=== PATIENT | male | born 1980 | race Caucasian/White ===

== ENCOUNTER 2019-10-17 13:23 | Emergency (ER) | payer SELFPAY ==
[2019-10-17 13:57] LABS: Absolute Lymphocytes (CBC) 2.5 K/uL (0.7-4.9); Basophils % 0.7 % (0-1.3); Hematocrit 45.9 % (39.6-49.0); Lymphocytes % 27.5 % (15.3-44.8); MPV 8.5 fL (7.6-11.3); RBC Red Blood Cell Count 4.38 M/uL (4.33-5.43)
[2019-10-17 14:02] LABS: Protime INR 0.91
--- NOTE | 2019-10-17 14:12 | RAD REPORT ---
EXAM DESCRIPTION: Danial Single View10/17/2019 1:55 pm CLINICAL HISTORY: Chest pain COMPARISON: none FINDINGS: The lungs appear clear of acute infiltrate. The heart is normal size IMPRESSION: No acute abnormalities displayed
[2019-10-17 14:17] LABS: ALT/SGPT 75 U/L (12-78); AST/SGOT 163 U/L (15-37); Albumin 3.7 g/dL (3.4-5.0); Alkaline Phosphatase 133 U/L (45-117); BUN Blood Urea Nitrogen 5 mg/dL (7-18); Bicarbonate 31 mmol/L (21-32); Bilirubin Direct 0.2 mg/dL (0-0.2); Bilirubin Total 0.7 mg/dL (0.2-1.0); Glucose Level 65 mg/dL (74-106); Magnesium 1.9 mg/dL (1.8-2.4); NT PRO-BNP 11 pg/mL (<125); Potassium 3.8 mmol/L (3.5-5.1); Protein, Total 6.8 g/dL (6.4-8.2); Sodium Level 138 mmol/L (136-145); Troponin (Emerg Dept Use Only) < 0.02 ng/mL (0.0-0.045)
[2019-10-17] MEDS ORDERED: KETOROLAC 30 MG/ML INJ ONE (15:07)
--- NOTE | 2019-10-17 15:19 | EKG ---
Test Date: 2019-10-17 Test Time: 13:43:27 [place] Floors Installer: AUSTYN MEASUREMENT RESULTS: Intervals: Rate: 89 MN: 160 QRSD: 88 QT: 370 QTc: 450 Wylie: P: 47 MN: 160 QRS: 62 T: 46 INTERPRETIVE STATEMENTS: Normal sinus rhythm Normal ECG No previous ECG available for comparison Electronically Signed On 10-17-19 15:17:53 MANUAL TRAINING TEACHER by Carlos Mcnally
--- NOTE | 2019-10-17 17:14 | EDPHYS ---
Physician Documentation [facility] Name: Raleigh Viera Age: 39 yrs Sex: Male : 1980 Arrival Date: 10/17/2019 Time: 13:26 Bed 16 Private MD: None, None ED Physician Gomez Pappas HPI: 10/17 14:37 This 39 yrs old Male presents to ER via Wheelchair with complaints of Chest [facility] Pain. 14:37 The patient or guardian reports chest pain that is located primarily in the anterior [facility] chest wall, left. The pain does not radiate. Associated signs and symptoms: Pertinent positives: cough, Pertinent negatives: shortness of breath. The chest pain is described as sharp. This is a 39 year old male with no chronic medical conditions that presents to the ED with complaints of left sided chest pain he describes as sharp. The pain does not radiate. Worsened with deep breath. . Historical: - Allergies: 13:32 PENICILLINS; tw2 - Home Meds: 13:32 None [Active]; tw2 - PMHx: 13:32 None; tw2 - PSHx: 13:32 left ankle; tw2 - Immunization history:: Adult Immunizations. - Coronavirus screen:: The patient has NOT traveled to [place], [place], or [place] in the past 14 days. - Social history:: Smoking status: Patient reports the use of cigarette tobacco products, smokes one pack cigarettes per day. - Ebola Screening: : Patient denies travel to an Ebola-affected area in the 21 days before illness onset. ROS: 14:37 Constitutional: Negative for fever, chills, and weight loss. jmm 14:37 Respiratory: Negative for shortness of breath, cough, wheezing, and pleuritic chest pain. 14:37 Cardiovascular: Positive for chest pain. 14:37 All other systems are negative. Exam: 14:37 Constitutional: This is a well developed, well nourished patient who is awake, alert, jmm and in no acute distress. Head/Face: atraumatic. Eyes: EOMI, no conjunctival erythema appreciated ENT: Moist Mucus Membranes Neck: Trachea midline, Supple 14:37 Respiratory: Normal respirations, no respiratory distress appreciated Abdomen/GI: Non distended, soft Back: Normal ROM Skin: General appearance color normal MS/ Extremity: Moves all extremities, no obvious deformities appreciated, no edema noted to the lower extremities Neuro: Awake and alert, normal gait Psych: Behavior is normal, Mood is normal, Patient is cooperative and pleasant 14:37 Chest/axilla: Inspection: normal, Palpation: tenderness, that is moderate, of the left breast. Vital Signs: 13:33 Pulse 55; Resp 17; Temp 97.8(TE); Pulse Ox 98% on R/A; Weight 72.57 kg (R); Height 6 tw2 ft. 1 in. (185.42 cm); Pain 9/10; 13:35 BP 147 / 103; tw2 14:45 BP 137 / 100; Pulse 86; Resp 17 S; Pulse Ox 95% on R/A; ca1 15:48 BP 137 / 104; Pulse 81; Resp 20; Pulse Ox 96% on R/A; ca1 16:54 BP 132 / 99; Pulse 73; Resp 17 S; Pulse Ox 96% on R/A; ca1 13:33 Body Mass Index 21.11 (72.57 kg, 185.42 cm) tw2 MDM: 13:41 Patient medically screened. coni 17:10 Data reviewed: vital signs, nurses notes, lab test result(s), EKG, radiologic studies, jmm plain films. ED course: Repeat troponin negative. PERC negative. Patient is advised to follow up with pcp or otherwise given strict return precautions. patient understood and agrees with the plan of care. . 10/17 13:35 Order name: Basic Metabolic Panel; Complete Time: 14:20 10/17 13:35 Order name: CBC with Diff; Complete Time: 14:20 10/17 13:35 Order name: LFT's; Complete Time: 14:20 10/17 13:35 Order name: Magnesium; Complete Time: 14:20 10/17 13:35 Order name: NT PRO-BNP; Complete Time: 14:20 10/17 13:35 Order name: PT-INR; Complete Time: 14:20 10/17 13:35 Order name: Troponin (emerg Dept Use Only); Complete Time: 14:20 10/17 13:35 Order name: XRAY Chest (1 view); Complete Time: 14:20 10/17 13:35 Order name: EKG; Complete Time: 13:36 10/17 13:35 Order name: Cardiac monitoring; Complete Time: 13:58 ca1 10/17 13:35 Order name: EKG - Nurse/Tech; Complete Time: 13:58 ca1 10/17 13:35 Order name: IV Saline Lock; Complete Time: 13:58 ca1 10/17 14:41 Order name: Troponin (emerg Dept Use Only): draw at 1535; Complete Time: 16:30 [facility] 10/17 13:35 Order name: Labs collected and sent; Complete Time: 13:58 ca1 10/17 13:35 Order name: O2 Per Protocol; Complete Time: 13:58 ca1 10/17 13:35 Order name: O2 Sat Monitoring; Complete Time: :58 ca1 Administered Medications: 15:04 Drug: Ketorolac 30 mg Route: IVP; Site: left antecubital; ca1 16:00 Follow up: Response: No adverse reaction; Pain is decreased ca1 Disposition: 10/18 08:58 Co-signature as Attending Physician, Gomez Pappas MD I agree with the assessment and coni plan of care. Disposition: 10/17/19 17:13 Discharged to Home. Impression: Chest pain, unspecified. - Condition is Stable. - Discharge Instructions: Nonspecific Chest Pain. - Prescriptions for Ibuprofen 800 mg Oral Tablet - take 1 tablet by ORAL route every 8 hours As needed take with food; 30 tablet. - Medication Reconciliation Form, Thank You Letter, Antibiotic Education, Prescription Opioid Use, Work release form form. - Follow up: Private Physician; When: 2 - 3 days; Reason: Recheck today's complaints, Continuance of care, Re-evaluation by your physician. Signatures: Dispatcher [employer] Gomez Atkins MD MD cha Mickail, Joel, PA PA Carmen Stephens, RN RN tw2 Bety Kearney RN RN ca1 Corrections: (The following items were deleted from the chart) 10/17 17:36 17:13 10/17/2019 17:13 Discharged to Home. Impression: Chest pain, unspecified. ca1 Condition is Stable. Forms are Medication Reconciliation Form, Thank You Letter, Antibiotic Education, Prescription Opioid Use. Follow up: Private Physician; When: 2 - 3 days; Reason: Recheck today's complaints, Continuance of care, Re-evaluation by your physician. calvin
--- NOTE | 2019-10-17 17:14 | ER ---
Nurse's Notes [facility] Name: Raleigh Viera Age: 39 yrs Sex: Male : 1980 Arrival Date: 10/17/2019 Time: 13:26 Bed 16 Private MD: None, None Diagnosis: Chest pain, unspecified Presentation: 10/17 13:31 Presenting complaint: Patient states: started having chest pain about a week ago, it is tw2 just not getting better. Transition of care: patient was not received from another setting of care. Onset of symptoms was October 17, 2019. Risk Assessment: Do you want to hurt yourself or someone else? Patient reports no desire to harm self or others. Initial Sepsis Screen: Does the patient meet any 2 criteria? No. Patient's initial sepsis screen is negative. Does the patient have a suspected source of infection? No. Patient's initial sepsis screen is negative. Care prior to arrival: None. 13:31 Method Of Arrival: Wheelchair tw2 13:31 Acuity: MANDO 3 tw2 Triage Assessment: 13:32 General: Appears in no apparent distress. Behavior is calm, cooperative, appropriate tw2 for age. Pain: Complains of pain in chest. Cardiovascular: Reports chest pain. Historical: - Allergies: 13:32 PENICILLINS; tw2 - Home Meds: 13:32 None [Active]; tw2 - PMHx: 13:32 None; tw2 - PSHx: 13:32 left ankle; tw2 - Immunization history:: Adult Immunizations. - Coronavirus screen:: The patient has NOT traveled to [place], [place], or [place] in the past 14 days. - Social history:: Smoking status: Patient reports the use of cigarette tobacco products, smokes one pack cigarettes per day. - Ebola Screening: : Patient denies travel to an Ebola-affected area in the 21 days before illness onset. Screenin:45 Abuse screen: Denies threats or abuse. Denies injuries from another. Nutritional ca1 screening: No deficits noted. Tuberculosis screening: No symptoms or risk factors identified. Fall Risk IV access (20 points). Assessment: 13:45 General: Appears in no apparent distress. comfortable, Behavior is calm, cooperative, ca1 appropriate for age. Pain: Complains of pain in left breast Pain does not radiate. Pain currently is 7 out of 10 on a pain scale. Quality of pain is described as sharp, Pain began a week ago Is intermittent. Neuro: Level of Consciousness is awake, alert, obeys commands, Oriented to person, place, time, situation, Appropriate for age. Cardiovascular: Heart tones S1 S2 present Capillary refill < 3 seconds Patient's skin is warm and dry. Pulses are all present. Rhythm is sinus rhythm. Respiratory: Airway is patent Respiratory effort is even, unlabored, Respiratory pattern is regular, symmetrical, Breath sounds are clear bilaterally. GI: Abdomen is flat, non-distended, Bowel sounds present X 4 quads. Abd is soft and non tender X 4 quads. GI: Reports nausea. : No deficits noted. No signs and/or symptoms were reported regarding the genitourinary system. EENT: No deficits noted. No signs and/or symptoms were reported regarding the EENT system. Derm: Skin is intact, is healthy with good turgor, Skin is pink, warm \T\ dry. Musculoskeletal: Circulation, motion, and sensation intact. Capillary refill < 3 seconds, Range of motion: intact in all extremities. 14:45 Reassessment: Patient appears in no apparent distress at this time. No changes from ca1 previously documented assessment. Patient and/or family updated on plan of care and expected duration. Pain level reassessed. Patient is alert, oriented x 3, equal unlabored respirations, skin warm/dry/pink. 15:47 Reassessment: Patient appears in no apparent distress at this time. No changes from ca1 previously documented assessment. Patient and/or family updated on plan of care and expected duration. Pain level reassessed. Patient is alert, oriented x 3, equal unlabored respirations, skin warm/dry/pink. 16:54 Reassessment: Patient appears in no apparent distress at this time. Patient and/or ca1 family updated on plan of care and expected duration. Pain level reassessed. Patient is alert, oriented x 3, equal unlabored respirations, skin warm/dry/pink. Vital Signs: 13:33 Pulse 55; Resp 17; Temp 97.8(TE); Pulse Ox 98% on R/A; Weight 72.57 kg (R); Height 6 tw2 ft. 1 in. (185.42 cm); Pain 9/10; 13:35 BP 147 / 103; tw2 14:45 BP 137 / 100; Pulse 86; Resp 17 S; Pulse Ox 95% on R/A; ca1 15:48 BP 137 / 104; Pulse 81; Resp 20; Pulse Ox 96% on R/A; ca1 16:54 BP 132 / 99; Pulse 73; Resp 17 S; Pulse Ox 96% on R/A; ca1 13:33 Body Mass Index 21.11 (72.57 kg, 185.42 cm) tw2 ED Course: 13:26 Patient arrived in ED. mr 13:26 None, None is Private Physician. mr 13:30 Bety Kearney, RN is Primary Nurse. ca1 13:32 Triage completed. tw2 13:33 Arm band placed on EKG paged to room 16 at this time. tw2 13:40 Kavon Rizzo PA is PHCP. [facility] 13:40 Gomez Pappas MD is Attending Physician. jmm 13:45 Patient has correct armband on for positive identification. Placed in gown. Bed in low ca1 position. Call light in reach. Side rails up X2. radiation monitor on. Pulse ox on. NIBP on. Warm blanket given. 13:55 X-ray completed. Portable x-ray completed in exam room. Patient tolerated procedure jb2 well. 13:55 No provider procedures requiring assistance completed. Initial lab(s) drawn, by vt, ca1 sent to lab. Inserted saline lock: 20 gauge in left antecubital area, using aseptic technique. Blood collected. Patient maintains SpO2 saturation greater than 95% on room air. 13:56 XRAY Chest (1 view) In Process Unspecified. EDMS 14:03 EKG done, by cable television technician. reviewed by Kavon LEAVITT. at1 17:35 IV discontinued, intact, bleeding controlled, No redness/swelling at site. Pressure ca1 dressing applied. Administered Medications: 15:04 Drug: Ketorolac 30 mg Route: IVP; Site: left antecubital; ca1 16:00 Follow up: Response: No adverse reaction; Pain is decreased ca1 Outcome: 17:13 Discharge ordered by . jmm 17:35 Discharged to home ambulatory. ca1 17:35 Condition: stable 17:35 Discharge instructions given to patient, Instructed on discharge instructions, follow up and referral plans. medication usage, Demonstrated understanding of instructions, follow-up care, medications, Prescriptions given X 1. 17:36 Patient left the ED. ca1 Signatures: Dispatcher [employer] EDMS Kavon Rizzo PA PA jmm RiveraYessi mr Sahil, Tunde jb2 Glenny Ding, blending operator EKG Tat1 Carmen Bernardo, RN RN tw2 Bety Kearney RN RN ca1
[2019-10-17 17:43] VITALS: TEMP 97.8
[2019-10-17 17:46] VITALS: O2SAT 96
[2019-10-17 17:47] VITALS: BP 132/99
== END 2019-10-17 17:36 | disposition home or self-care (01) ==
LOC: EDBD 13:23 → ER 13:23
DX: R07.9 Chest pain, unspecified (principal); Z88.0 Allergy status to penicillin
CPT/HCPCS: 36415; 71045; 80048; 80076; 83735; 83880; 84484; 85025; 85610; 93005; 96374; 99285

== ENCOUNTER 2021-04-16 08:15 | Emergency (ER) | payer SELFPAY ==
--- OUTSIDE RECORDS SUMMARY | 2021-04-16 08:19 | XMS REPORT | Continuity of Care Document ---
:1980 Author Organization [facility] t Address [address] [place] [address] Care Team Providers Name Role Phone Moses Hunter MD Attending Clinician Rosa Romano Attending Clinician Austin Attending Clinician Billy Kraft Attending Clinician [phone] Julio Colunga Attending Clinician Rosa Romano Admitting Clinician Problems Condition Condition Condition Status Onset Resolution Last Treating Co mments Source Name Details Category Date Date Treatment Clinician Date THROAT Diagnosis Active 2018-12-18 Mem oria PAIN 9-13 16:08:00 l THROAT 00:00: Stanley PAIN 00 Active 06/03/2018 [facility] [place] CHEST PAIN Diagnosis Active 2017-12-24 Memoria - 16:30:00 l CHEST 00:00: Michael PAIN 00 Active 12/24/2017 [facility] MOUTH PAIN Diagnosis Active 2014-092015-09-20 Memoria 17:37:00 l MOUTH 00:00: Stanley PAIN 00 Active 09/20/2015 [facility] Other Problem 2018-12-21 Memor ia specified 14:56:46 l bacterial Other Joey n agents as specified the cause bacterial of agents as diseases the cause classified of elsewhere diseases classified elsewhere 12/21/2018 [place] Supraglott Problem 2018-12-21 M ludmila goddard, 14:56:46 l unspecifie Joey n d, without Supraglott obstructio itis, n unspecifie d, without obstructio n 12/21/2018 [facility] Alcohol Problem 2018-12-23 Chris bennett abuse, 11:44:27 l uncomplica Alcohol Her ashton kim abuse, uncomplica kim 12/23/2018 [facility] Nicotine Problem 2018-12-23 Mem oria dependence 11:44:27 l , Nicotine Joey n cigarettes dependence , , uncomplica cigarettes kim , uncomplica kim 12/23/2018 [facility] ACUTE Diagnosis Active 2018-12-18 Mem oria PHARYNGITI 16:08:00 l S, ACUTE Stanley UNSPECIFIE PHARYNGITI D S, UNSPECIFIE D Active [facility] History of Past Illness Condition Condition Condition Status Onset Resolution Last Treating Co mments Source Name Details Category Date Date Treatment Clinician Date Acute Problem 2017-092018-12-23 2018-12-23 M emoria epiglottit -30 11:44:27 11:44:27 l is without Acute 06:32: Page nn obstructio epiglottit 21 n is without obstructio n 08/20/2018 12/23/2018 [facility] Upper Problem 2018-04-01 2018-04-01 M emoria abdominal 12 16:19:17 16:19:17 l pain, Upper 03:49: Stanley unspecifie abdominal 52 d pain, unspecifie d 12/31/2017 04/01/2018 [facility] Unspecifie Problem 2018-04-01 2018-04-01 Memoria d 4-05 16:19:17 16:19:17 l abdominal 05:00: Stanley pain Unspecifie 00 d abdominal pain 12/24/2017 04/01/2018 [facility] Discharge Problem 2014-092015-09-23 2015-09-23 Memoria Diagnosis: 2- 06:18:08 06:18:08 l Dental 06:00: Stanley infection Discharge 00 Diagnosis: Dental infection 09/20/2015 09/23/2015 [facility] Allergies, Adverse Reactions, Alerts Allergy Allergy Status Severity Reaction(s) Onset Inactive Treating Comm ents Source Name Type Date Date Clinician penicill penicill Active Memori a ins ins l Michael Social History Social Habit Start Date Stop Date Quantity Comments Source Social History 2018-06-03 2018-06-03 [facility] 12:47:03 12:47:03 Medications Ordered Filled Start Stop Current Ordering Indication Dosage Frequency Signature Comments Components Source Medication Medication Date Date Medication? Clinician (SIG) Name Name clindamycin 2017- No 300 mg = 1 Memoria 300 mg oral 9-15 cap, PO, l capsule 16:32: Q6H, X 10 Page nn 00 day, # 40 cap, 0 Refill(s), Pharmacy: [place] [id number] Clindamycin 2017-0 No 300 mg, 50 Memoria 9-15 mL, Route: l 14:00: IVPB, Drug Michael 00 form: INJ, ABXQ8H, Dosing Weight 79.9, kg, Start date: 06/05/18 9:00:00 CDT, Duration: 10 day, Stop date: 06/15/18 1:00:00 CDT, ABX Indication : Skin/Soft Tissue Infection Lorazepam No Notes: Memori a 14 (Same as: l 14:17: Ativan) Michael 00 Saline 0 No Notes: Memoria Flush 0.9% 06-04 (Same as: l 02:00: BD Stanley Posiflush) Mupirocin 2017-0 No 1 appl, Memor ia 06-04 Route: l 02:00: NASAL, Stanley 00 Q12H, Drug form: OINT, Start date: 06/03/18 21:00:00 CDT, Duration: 5 day, Stop date: 06/08/18 9:00:00 CDT, MRSA Decoloniza tion Dexamethaso 2017-0 No 4 mg, Memor ia ne 06-03 Route: l 23:00: IVP, Q6H, Michael Dosing Weight 75, kg, Start date: 06/03/18 18:00:00 CDT, Duration: 30 day, Stop date: 07/03/18 12:00:00 CDT Clindamycin 2017-0 No 900 mg, Mem oria 06-03 Route: l 22:00: IVPB, Stanley ABXQ8H, Dosing Weight 75, kg, Start date: 06/03/18 17:00:00 CDT, Duration: 7 day, Stop date: 06/10/18 9:00:00 CDT, ABX Indication : Other (specify in Comments) remove No Notes: Memoria patch 06-03 Remove old l 22:00: patch Stanley 00 before applicatio n of new patch. WASTE: F/P - P Waste Black; E - P Waste Black Racepinephr No Notes: Chris bennett ine 22.5 06-03 (racepinep l MG/ML 21:15: hrine Michael Inhalant 00 *2.25% inh Solution 0.5ml SOLN) (Same as:S2) Sodium No 1,000 mL, Memori a Chloride 06-03 Rate: 100 l 0.9% IV 21:13: ml/hr, Michael 1,000 mL + 00 Infuse M.V.I.-12 over: 10.1 10 mL Daily hr, Route: + folic IV, Dosing acid IV 1 Weight 75 mg Daily + kg, Total thiamine IV Volume: 1 1,011.2, Start date: 06/03/18 16:13:00 CDT, Duration: 3 day, Stop date: 06/06/18 16:12:00 CDT, 1.96, m2 Lorazepam No Notes: Memori a 06-03 (Same as: l 21:13: Ativan) Michael 00 Nicotine No Notes: Memoria 06-03 (Same as: l 21:12: Habitrol) Stanley "Remove old patch before applicatio n of new patch" WASTE: F/P - P Waste Black; E - P Waste Black Calcium No Notes: Memoria Carbonate 06-03 (Same As: l 500 MG 21:11: Tums) Stanley Chewable 00 Calcium Tablet Carbonate 500 mg = 200 mg elemental calcium Dose = mg calcium carbonate ( mg elemental calcium) potassium No Notes: Memori a phosphate-s 06-03 (Same as: l odium 21:11: Phos-NaK) Michael phosphate 00 Each 1.5 250 mg-280 gm pkt has mg-160 mg 250mg oral powder phosphorou for s. Mix reconstitut w/2.5oz ion water and stir. Magnesium No Notes: Memori a Sulfate 06-03 WASTE: F/P l 21:11: - Sink; E Stanley - Municipal Trash Bin sodium No Notes: Memoria phosphate 9-13 Infuse l 21:11: over 4 Stanley 00 hour. Do not infuse phosphorou s concurrent ly in the same line as TPN or IVF that contains calcium. For double lumen central lines, phosphorou s may be infused in a separate lumen from TPN. Potassium No Notes: Memori a Chloride 9-13 (Same as: l 21:11: Potassium Michael Chloride) potassium No Notes: Memori a phosphate 9-13 (Same as: l 21:11: K Stanley Phosphate. ) Do not infuse phosphorou s concurrent ly in the same line as TPN or IVF that contains calcium. For double lumen central lines, phosphorou s may be infused in a separate lumen from TPN. 1 mMol phoshate has 1.47 mEq potassium Infuse over 4 hours Calcium No Notes: Memoria Gluconate 06-03 WASTE: F/P l 21:11: - Sink; E Stanley - Municipal Trash Bin Magnesium No Notes: Memori a Oxide 06-03 (Same as: l 21:11: Mag-Ox Michael 00 400) Magnesium oxide 714by=730h g elemental magnesium Dose=____m g magnesium oxide (___mg elemental magnesium) Saline No Notes: Memoria Flush 0.9% 06-03 (Same as: l 21:11: BD Michael Posiflush) Albuterol No Notes: Memori a 0.833 MG/ML 06-03 (Same as: l / 21:11: Duoneb) Stanley Ipratropium 00 Ebro 0.167 MG/ML Inhalant Solution Acetaminoph No Notes: Do M emoria en 06-03 not exceed l 21:11: 4 gm/day. Stanley 00 (Same as: Tylenol) Nystatin No Notes: Memoria 100 UNT/MG 06-03 (Same l Topical 21:11: as:Mycosta Herm rashaad Powder 00 tin, Nilstat) For external use only. Clindamycin No Notes: Chris bennett 06-03 (clindamyc l 17:51: in 150 Stanley 00 mg/1 ml (600 mg/4 ml VL) INJ) (Same As: Cleocin) Dexamethaso 2017-0 No Notes: Memoria ne - MEDICATION l 17:51: WASTE Stanley 00 Product Size: 10 mg Product Wasted: ___ mg Clindamycin [id number] No 900 mg, 50 Memoria 9-13 mL, Route: l 17:42: IVPB, Drug Michael 00 form: INJ, ONCE, Dosing Weight 75, kg, Priority: STAT, Start date: 06/03/18 12:42:00 CDT, Stop date: 06/03/18 12:42:00 CDT, ABX Indication : Non-PNA Respirator y Tract Infection Ceftriaxone 0 No 1 gm, Memor ia 06-03 Route: l 16:13: IVPB, Stanley 00 ONCE, Dosing Weight 75, kg, Priority: STAT, Start date: 06/03/18 11:13:00 CDT, Stop date: 06/03/18 11:13:00 CDT, ABX Indication : Non-PNA Respirator y Tract Infection Ketorolac 0 No 4 days Memor ia -13 l 13:11: MEDICATION Stanley 00 WASTE Product Size: 30 mg Product Wasted: ___ mg methylPREDN No Notes: Chris bennett ISolone 06-03 (Same l SODium 13:11: as:Solu-ME Page nn SUCCinate 00 DROL, A-Methapre d) Sodium No 1,000 mL, Memori a Chloride 06-03 1000 l 0.9% 13:11: ml/hr, Stanley (Bolus) IV 00 Infuse Over: 1 hr, Route: IV, 1,000, Drug form: INJ, ONCE, Priority: STAT, Dosing Weight 75 kg, Start date: 06/03/18 8:11:00 CDT, Stop date: 06/03/18 8:11:00 CDT Sucralfate 2017-0 Yes 1 gm = 10 Me moria 100 MG/ML 4-05 ml, PO, l Oral 22:53: QID-Before Stanley Suspension 00 Meals, # [Carafate] 400 ml, 0 Refill(s) GI cocktail 2018-0 No Notes: Chris bennett 4-05 G.I. l 22:52: Cocktail = Stanley 00 antacid with simethicon e 22.5 mL - lidocaine viscous 7.5 mL Bentyl No Notes: Memoria 4-05 (Same as: l 22:51: Bentyl) Stanley 00 Dicyclomine Yes 10 mg = 1 M emoria Hydrochlori 4-05 cap, PO, l de 10 MG 22:49: QID-Before Her ashton Oral 00 Meals, # Capsule 12 cap, 0 [Bentyl] Refill(s) Acetaminoph No 1 tab, PO, Memoria en 300 MG / 4-05 TID, PRN l Codeine 22:48: Pain, X 4 Page nn Phosphate 00 day, # 12 30 MG Oral tab, 0 Tablet Refill(s) [Tylenol with Codeine #3] Naproxen 2014-09 Yes 500 mg = 1 Mem oria 500 MG Oral 2-31 tab, PO, l Tablet 23:20: BID, # 14 Joey n [Naprosyn] 00 tab, 0 Refill(s) lidocaine 2014-09 Yes Notes: Memori a 1% 2-31 (Same as: l injectable 23:06: Xylocaine) H ermann solution 00 Vital Signs Vital Name Observation Time Observation Value Comments Source Systolic (mm Hg) 2018-06-05 16:22:00 Chris rial Michael Diastolic (mm Hg) 2018-06-05 16:22:00 Mem orial Michael Respitory Rate 2018-06-05 16:22:00 Memori al Michael Heart Rate 2018-06-05 16:22:00 [facility] Michael Temperature Oral (F) 2018-06-05 16:22:00 99.2 F [facility] Michael Systolic (mm Hg) 2018-06-05 13:02:00 Hcris rial Michael Diastolic (mm Hg) 2018-06-05 13:02:00 Mem orial Michael Temperature Oral (F) 2018-06-05 13:02:00 98.0 F [facility] Michael Respitory Rate 2018-06-05 13:02:00 Memori al Michael Heart Rate 2018-06-05 13:02:00 [facility] Michael Temperature Oral (F) 2018-06-05 09:33:00 98.3 F [facility] Stanley Heart Rate 2018-06-05 09:33:00 [facility] [place] Respitory Rate 2018-06-05 09:33:00 Memori al Stanley Systolic (mm Hg) 2018-06-05 09:33:00 Chris rial Stanley Diastolic (mm Hg) 2018-06-05 09:33:00 Mem orial Stanley Weight 2018-06-04 00:27:00 [facility] Michael Weight 2018-06-03 21:12:00 [facility] Stanley BMI Calculated 2018-06-03 21:12:00 Memori al Stanley Height 2018-06-03 21:12:00 182.88 cm [facility] Michael Heart Rate 2018-06-03 19:41:00 [facility] Michael Temperature Oral (F) 2018-06-03 19:41:00 99.3 F [facility] Stanley Systolic (mm Hg) 2018-06-03 19:41:00 Chris rial Michael Diastolic (mm Hg) 2018-06-03 19:41:00 Mem orial Michael Respitory Rate 2018-06-03 19:41:00 Memori al Michael Respitory Rate 2018-06-03 18:14:00 Memori al Stanley Respitory Rate 2018-06-03 18:05:00 Memori al Michael Systolic (mm Hg) 2018-06-03 18:05:00 Chris rial Michael Diastolic (mm Hg) 2018-06-03 18:05:00 Mem orial Michael Temperature Oral (F) 2018-06-03 17:01:00 99.1 F [facility] [place] Systolic (mm Hg) 2018-06-03 17:01:00 Chris rial Michael Diastolic (mm Hg) 2018-06-03 17:01:00 Mem orial Michael BMI Calculated 2018-06-03 12:29:00 Memori al Stanley Weight 2018-06-03 12:29:00 [facility] Michael Temperature Oral (F) 2018-06-03 12:29:00 98.2 F [facility] Stanley Height 2018-06-03 12:29:00 182.88 cm [facility] Stanley Heart Rate 2018-06-03 12:29:00 [facility] Michael Systolic (mm Hg) 2017-12-24 23:12:00 Chris rial Stanley Diastolic (mm Hg) 2017-12-24 23:12:00 Mem orial Michael Respitory Rate 2017-12-24 23:12:00 Memori al Michael Temperature Oral (F) 2017-12-24 23:12:00 98.1 F [facility] Michael Heart Rate 2017-12-24 23:12:00 [facility] Stanley Weight 2017-12-24 20:03:00 [facility] Stanley Respitory Rate 2017-12-24 20:03:00 Memori al Michael Heart Rate 2017-12-24 20:03:00 [facility] Stanley Height 2017-12-24 20:03:00 187.96 cm [facility] Stanley BMI Calculated 2017-12-24 20:03:00 Memori al Micahel Temperature Oral (F) 2017-12-24 20:03:00 98.5 F [facility] Michael Systolic (mm Hg) 2017-12-24 20:03:00 Chris rial Michael Diastolic (mm Hg) 2017-12-24 20:03:00 Mem orial Stanley Weight 2015-09-20 23:00:00 [facility] Stanley Respitory Rate 2015-09-20 23:00:00 Memori al Stanley Temperature Oral (F) 2015-09-20 23:00:00 98 F [facility] Stanley Systolic (mm Hg) 2015-09-20 23:00:00 Chris rial Michael Diastolic (mm Hg) 2015-09-20 23:00:00 Mem orial Stanley Heart Rate 2015-09-20 23:00:00 [facility] Michael Procedures Procedure Date / Time Performed Performing Clinician Sourc e Ankle joint [facility] Michael operations<sup>1</sup> Encounters Start End Encounter Admission Attending Care Care Encounter Source Date/Time Date/Time Type Type Clinicians Facility Department ID 2020-04-02 2020-04-02 [place] [id number] 00:00:00 00:00:00 [facility] [id number] Moses Castro [id number] Professio [phone] nal [address] 2020-03-30 2020-03-30 Telephone [facility] [id number] 00:00:00 00:00:00 Gigi [place] [id number] Moses Snell [id number] Professio [phone] nal [facility] 2020-03-28 2020-03-28 [facility] [id number] 13:33:02 13:48:02 Visit Gigi Castro [id number] Moses Snell [id number] Professio [id number] nal 044 [facility] 2020-03-28 2020-03-28 Letter [facility] [id number] 00:00:00 00:00:00 (Out) Gigi Castro [id number] jolly Azevedobury [id number] Professio [phone] nal [address] [place] [address] 2018-06-03 2018-06-05 Outpatient Rosalina SE SE [id number] 15:58:00 14:00:00 Aimeedylon Lee 2018-06-03 2018-06-[address] [id number] 07:25:00 15:17:00 Wilner 02 2017-12-24 2017-12-[address]va-Dayan [address] [facility] [id number] 14:59:00 18:35:00 aimee, Juan Cervantes 2015-09-20 2015-09-20 Outpatient Bobby Colunga SE SE [id number] 16:57:00 17:34:00 Julio 00 Results Test Description Test Time Test Comments Results Result Comments Source CHEM PANEL 2018-06-04 2.1 Memorial 10:59:00 Stanley CHEM PANEL 2018-06-04 118 Memorial 10:59:00 Stanley CHEM PANEL 2018-06-04 143 Memorial 10:59:00 Stanley CHEM PANEL 2018-06-04 4.2 Memorial 10:59:00 Stanley CHEM PANEL 2018-06-04 109 Memorial 10:59:00 Stanley CHEM PANEL 2018-06-04 30 Memorial 10:59:00 Stanley CHEM PANEL 2018-06-04 8.8 Memorial 10:59:00 Michael CHEM PANEL 2018-06-04 0.74 Memorial 10:59:00 Stanley CHEM PANEL 2018-06-04 130 Memorial 10:59:00 Michael CHEM PANEL 2018-06-04 6 Memorial 10:59:00 Stanley CHEM PANEL 2018-06-04 8.2 Memorial 10:59:00 Michael CHEM PANEL 2018-06-04 2.0 Memorial 10:59:00 Stanley HEMATOLOGY 2018-06-04 0.8 Memorial 10:59:00 Michael HEMATOLOGY 2018-06-04 12.7 Memorial 10:59:00 Stanley HEMATOLOGY 2018-06-04 2+ Memorial 10:59:00 *ABN*(06/04/18 Stanley 5:59 AM) HEMATOLOGY 2018-06-04 0.9 Memorial 10:59:00 Stanley HEMATOLOGY 2018-06-04 88.5 Memorial 10:59:00 Stanley HEMATOLOGY 2018-06-04 5.3 Memorial 10:59:00 Stanley HEMATOLOGY 2018-06-04 6.0 Memorial 10:59:00 Michael HEMATOLOGY 2018-06-04 0.2 Memorial 10:59:00 Michael HEMATOLOGY 2018-06-04 13.3 Memorial 10:59:00 Michael HEMATOLOGY 2018-06-04 14.3 Memorial 10:59:00 Michael HEMATOLOGY 2018-06-04 4.03 Memorial 10:59:00 Michael HEMATOLOGY 2018-06-04 104.5 Memorial 10:59:00 Michael HEMATOLOGY 2018-06-04 42.1 Memorial 10:59:00 Stanley HEMATOLOGY 2018-06-04 35.0 Memorial 10:59:00 Michael HEMATOLOGY 2018-06-04 10:59:00 Test Item Value Reference Range Interpretation Comme nts MCH (test code = MCH) 36.6 pg 27.0-31.0 [facility] NlhggmsTHYCZLESHB7171-26-49 10:59:008.8[facility]ann[facility]MATOLOGY 2018-06-04 10:59:94788Tymskgjr JygdhcqPNLFZXYVTH5882-37-12 10:59:0014.8[facility] HermannSPECIAL UURFJFCAY4330-93-29 10:59:004.5[facility] PrxjjbmWWBQZ3757-20-99 14:00:00Negative (06/03/18 9:00 AM)[facility] HermannVIRAL - [id number] 14:00:00Negative (06/03/18 9:00 AM)[facility] HermannVIRAL - EYPPIWNM1846-85-48 14:00:00Negative (06/03/18 9:00 AM)[facility]ann[facility]M LYZHV6897-70-35 13:44:00 144[facility] HermannCHEM KGHWE6951-81-43 13:44:003.6[facility] HermannCHEM PANEL 2018-06-03 13:44:74640Dzykvffl HermannCHEM CEBRS7551-81-50 13:44:004[facility] HermannCHEM VLUMZ4859-40-19 13:44:00 Test Item Value Reference Range Interpretation Comments B/C Ratio (test code = B/C Ratio) 5 1 6-25 [facility]annCHEM [id number] 13:44:003.7[facility] HermannCHEM PANEL 2018-06-03 13:44:00 Test Item Value Reference Range Interpretation Comments A/G Ratio (test code = A/G Ratio) 1.1 1 0.7-1.6 [facility]annCHEM [id number] 13:44:0012.6[facility] HermannHEMATOLOGY 2018-06-03 13:44:000.8[facility] HgvxptoHLNYLAHJPQ7214-32-34 13:44:000.4[facility] WrpnmwrTNKCNUTNBV9425-42-32 13:44:000.2[facility] ApgpvmzZTGXNQJVJE7854-21-54 13:44:0010.0[facility] QpnqhrvNJJOWEINUO5623-75-32 13:44:000.1[facility] Stanley HXTUBPXYLL3516-75-07 13:44:003.4[facility] GzgmcwiVONOCQYNGA8438-80-79 13:44:007.3 Memorial GlztufiIQYOVUETNF3479-05-69 13:44:0089.0[facility] HermannHEMATOLOGY 2018-06-03 13:44:0013.5[facility]orial HpnpaqbKZLKDTGZSL1797-51-31 13:44:59016Ravrjvyi ArgdlcyNLFXGNKMIU7610-41-52 13:44:008.2[facility] CnvdmzzYSSOUROWHG5141-81-49 13:44:0035.4[facility] KgvqxehDFLKUBCIAF4303-17-24 13:44:00 Test Item Value Reference Range Interpretation Comments MCH (test code = MCH) 36.6 pg 27.0-31.0 Memorial GekhpejEACIYZJRTD4255-28-76 13:44:79616.3[facility] HermannHEMATOLOGY 2018-06-03 13:44:0011.3[facility] RjzhvtaZLEZBLOKCI8503-42-87 13:44:004.62[facility] RpfojlbYZVKKEMGYR2507-15-35 13:44:0016.9[facility] MjaqxwsZGVROOXTJA8857-10-63 13:44:0047.8[facility] HermannCHEM ZBSZJ7704-33-28 13:44:15701Hlpymsle HermannCHEM SBXVB3633-05-74 13:44:001.0[facility] HermannCHEM YIRTG9891-60-57 13:44:18747 [facility]annCHEM XVFML2836-45-71 13:44:0026[facility] HermannCHEM PANEL 2018-06-03 13:44:0036[facility] HermannCHEM PAWJW6233-71-23 13:44:009.2[facility] HermannCHEM FTGYK2299-13-95 13:44:004.0[facility] HermannCHEM UNRPT4096-02-15 13:44:007.7[facility] HermannCHEM YPUWB1666-07-09 13:44:000.75[facility] HermannCHEM YJUND0133-16-66 13:44:46818Geutqjud HermannCHEM XPFOI3822-16-44 13:44:0029 [facility] HermannCARDIAC CPQAJLO5993-46-96 21:09:80791Axqbrnbk HermannCARDIAC IEVEWJE7848-68-92 21:09:00<0.02[facility] HermannCHEM TFFKH9403-39-25 21:09:00 9.0[facility] HermannCHEM DHAQJ5200-27-70 21:09:0029[facility] HermannCHEM PANEL 2017-12-24 21:09:006.9[facility] HermannCHEM LVTVV0688-75-71 21:09:69573Lpsdimox HermannCHEM MYYYT4354-29-72 21:09:26014Rienrbmq HermannCHEM DBINZ5240-24-57 21:09:0024[facility] HermannCHEM MWPAZ3641-27-96 21:09:0023[facility] HermannCHEM HCNSH2995-12-03 21:09:0085[facility] HermannCHEM EENFL8537-28-62 21:09:000.6 [facility]annCHEM UUGCW2666-57-09 21:09:003.8[facility] HermannCHEM PANEL 2017-12-24 21:09:21735Lujicvoz HermannCHEM JDLSI8768-32-82 21:09:004.1[facility] HermannCHEM JZZIF0165-60-61 21:09:000.83[facility] HermannCHEM LZNCO2315-49-26 21:09:004[facility] HermannCHEM WYQTV7130-26-00 21:09:0089[facility] HermannCHEM BHSEE4499-98-12 21:09:00 Test Item Value Reference Range Interpretation Comments B/C Ratio (test code = B/C Ratio) 5 1 6-25 [facility]annCHEM [id number] 21:09:0010.1[facility] HermannCHEM PANEL 2017-12-24 21:09:003.1[facility] HermannCHEM [id number] 21:09:00 Test Item Value Reference Range Interpretation Comments A/G Ratio (test code = A/G Ratio) 1.2 1 0.7-1.6 [facility]annCHEM [id number] 21:09:0077[facility] HermannHEMATOLOGY 2017-12-24 21:09:007.8[facility] LfgftqyBURLJZSNPR1017-56-89 21:09:000.1[facility] LtzltkhMTIRSINEEC1214-85-92 21:09:000.6[facility] KjghcgbSZJOMQSTIA8649-66-33 21:09:002.3[facility] LbonztwNFDNKWKFWS5441-10-41 21:09:000.7[facility] EXZBFCXWHT4488-16-54 21:09:000.2[facility] ZomotsgDSEODKRFZR6667-19-10 21:09:002.2 Memorial IlidfhuQIZDOIZSON6346-93-92 21:09:004.7[facility] HermannHEMATOLOGY 2017-12-24 21:09:0028.7[facility] AwaaizjEDUAPSDNGW7346-87-27 21:09:0060.5[facility] PbblhrlAZTKZZUVDX6058-96-19 21:09:0034.8[facility] WzhqqgdFZTDIMOQTI1429-85-42 21:09:008.8[facility]orial YfsdwhzQFQLSCGAEY2654-54-60 21:09:72364Pvbbcvcg Michael GTLVWWZTFJ5710-33-68 21:09:0012.5[facility] SvyjmczTYJSCEVWJG2871-01-71 21:09:00 Test Item Value Reference Range Interpretation Comments MCH (test code = MCH) 35.1 pg 27.0-31.0 [facility] KyzveahUBNDHEODWH0951-00-94 21:09:0042.7[facility] HermannHEMATOLOGY 2017-12-24 21:09:04009.0[facility] FfriwszISVNGLAEAM3750-04-33 21:09:004.23 Memorial NgikcchBIDBGVKFFL7882-70-69 21:09:0014.9[facility] HermannHEMATOLOGY 2017-12-24 21:09:007.7[facility] HermannURINE AND XIAZC1777-72-01 21:09:00Negative (12/24/17 4:09 PM)[facility]annURINE AND KHMHD7655-19-03 21:09:00Negative *NA*(12/24/17 4:09 PM)[facility]ann[facility]INE AND QEDHJ7948-61-44 21:09:00<1 [facility] AND [id number] 21:09:00Negative (12/24/17 4:09 PM) [facility] LQIOQ7788-28-53 21:09:00Negative (12/24/17 4:09 PM) [facility] [id number] 21:09:00 Test Item Value Reference Range Interpretation Comments UA pH (test code = UA pH) 7.0 1 5.0-8.0 [facility]ann[facility] AND [id number] 21:09:00 Test Item Value Reference Range Interpretation Comments UA Spec Grav (test code = UA Spec 1.003 1 Grav) [facility] AND [id number] 21:09:00Clear (12/24/17 4:09 PM)[facility]ann[facility] AND MCWYJ2407-16-85 21:09:00Yellow *NA*(12/24/17 4:09 PM)[facility] Michael
[2021-04-16 09:45] LABS: Hematocrit 39.3 % (39.6-49.0); MPV 7.6 fL (7.6-11.3); RBC Red Blood Cell Count 3.43 M/uL (4.33-5.43)
[2021-04-16] MEDS ORDERED: ONDANSETRON 4 MG/2 ML VIAL ONE (09:50)
[2021-04-16] MEDS ORDERED: MAGNES/ALUMIN/SIMET 30ML UCUP ONE (09:50)
[2021-04-16] MEDS ORDERED: LIDOCAINE VISCOUS 2% SOLN 15 ML UDC ONE (09:50)
[2021-04-16] MEDS ORDERED: NA CHLORIDE 0.9% 1,000 ML ONE (09:50)
[2021-04-16 10:01] LABS: ALT/SGPT 61 U/L (12-78); AST/SGOT 135 U/L (15-37); Albumin 2.3 g/dL (3.4-5.0); Alkaline Phosphatase 218 U/L (45-117); BUN Blood Urea Nitrogen 3 mg/dL (7-18); Bicarbonate 28 mmol/L (21-32); Bilirubin Direct 0.5 mg/dL (0-0.2); Bilirubin Total 1.6 mg/dL (0.2-1.0); Glucose Level 94 mg/dL (74-106); Lipase 17 U/L (73-393); Potassium 4.2 mmol/L (3.5-5.1); Protein, Total 5.4 g/dL (6.4-8.2); Sodium Level 140 mmol/L (136-145)
--- NOTE | 2021-04-16 10:15 | RAD REPORT ---
EXAM DESCRIPTION: CT - Chest Abdomen Pelvis W Cont - 04/16/2021 9:56 am CLINICAL HISTORY: cough, sob, smoker, early satiety, weight loss COMPARISON: No comparisons TECHNIQUE: Following dynamic enhancement using 100 milliliters nonionic IV contrast, axial imaging o f the chest, abdomen and pelvis was performed. Biphasic technique was utilized through the abdomen. No oral contrast. All CT scans are performed using dose optimization technique as appropriate and may include automated exposure control or mA/KV adjustment according to patient size. FINDINGS: Lungs are clear of mass and infiltrate. Atelectasis or scarring present in the posterior g utter on the left. Lung zaidi appear hyperexpanded. COPD is possible and can be correlated with pulm onary function studies. No pleural effusion, pleural thickening or pneumothorax. No significant aorti c or pulmonary arterial tree finding. Mediastinal and hilar regions show no mass or abnormal lymphade nopathy. No chest wall mass or axillary lymphadenopathy. Liver shows a mild diffuse fatty infiltration pattern. Ad's lobe configuration is seen. No solid mass lesion of the liver parenchyma. Portal vein is unremarkable. Spleen and pancreas are unremarkabl e. Gallbladder and biliary tree are unremarkable. Gallstones can be occult on CT imaging. Symmetric renal function is seen with no sella mass or hydronephrosis. No adrenal abnormalities. A 14 mm cyst i s present lower pole left kidney. No gastric dilatation or gastric wall thickening seen. No dilated small bowel loops. Several small fern wel loops show mild wall thickening. Colon is decompressed which accentuates the wall thickness. No a symmetric wall thickening or colon mass seen. The minimal colitis is possible but would need correspo nding acute symptoms. No acute GI findings seen. No free air, free fluid or inflammatory stranding. No mass, omental thickening or bulky lymphadenopat hy. No acute or destructive bony process. No significant vascular findings. IMPRESSION: CT chest imaging shows no occult malignancy or other emergent finding. Lung zaidi do ap pear hyperexpanded and the patient could have COPD. This needs correlation with exam and pulmonary fu nction studies. No occult malignancy in the abdomen or pelvis. Small bowel and colon findings detailed above could indicate a nonspecific enteritis. Underlying infl ammatory bowel is possible. There are no emergent findings present.
--- NOTE | 2021-04-16 11:34 | RAD REPORT ---
EXAM DESCRIPTION: US - Abdomen Exam Limited - 04/16/2021 11:26 am CLINICAL HISTORY: Abd pain;Nausea / vomiting COMPARISON: Chest Abdomen Pelvis W Cont dated 04/16/2021 FINDINGS: No gallstones, sludge or other abnormalities within the gallbladder lumen. There is no wal l thickening or pericholecystic fluid. Patient has a normal variant elongated length with relatively narrow transverse diameter. No common duct stone or biliary tree dilatation identified. Common bile duct is upper normal at 6 mm. IMPRESSION: No gallbladder or biliary tree abnormality identifiable.
[2021-04-16 12:27] LABS: Anisocytosis 1+; Blood Morphology Comment NOTED (NOT SEEN); Macrocytosis 2+; Platelet Estimate ADEQ; White Blood Cell Scan OK (OK)
--- NOTE | 2021-04-16 18:05 | ER ---
Nurse's Notes [facility] [place] Name: Raleigh Viera Age: 41 yrs Sex: Male : 1980 Arrival Date: 04/16/2021 Time: 08:19 Bed 3 Private MD: Diagnosis: Anorexia;Abdominal pain, unspecified Presentation: 04/16 08:25 Chief complaint: Patient states: decreased appetite x 4 months. Coronavirus screen: ss Client denies travel out of the [place] in the last 14 days. Ebola Screen: Patient denies exposure to infectious person. Patient denies travel to an Ebola-affected area in the 21 days before illness onset. Initial Sepsis Screen: Does the patient meet any 2 criteria? HR > 90 bpm. No. Patient's initial sepsis screen is negative. Does the patient have a suspected source of infection? No. Patient's initial sepsis screen is negative. Risk Assessment: Do you want to hurt yourself or someone else? Patient reports no desire to harm self or others. Onset of symptoms is unknown. 08:25 Method Of Arrival: Ambulatory 08:25 Acuity: MANDO 3 Historical: - Allergies: 08:27 PENICILLINS; ss - Home Meds: 08:27 None [Active]; ss - PMHx: 08:27 None; ss - PSHx: 08:27 L ankle; ss - Immunization history:: Adult Immunizations unknown. - Social history:: Smoking status: Patient reports the use of cigarette tobacco products, smokes one-half pack cigarettes per day. - Family history:: not pertinent. - Hospitalizations: : No recent hospitalization is reported. Screenin:35 Abuse screen: Denies threats or abuse. Denies injuries from another. Nutritional sv screening: No deficits noted. Tuberculosis screening: No symptoms or risk factors identified. Fall Risk None identified. Assessment: 09:35 General: Appears in no apparent distress. comfortable, slender, well groomed, well sv developed, Behavior is calm, cooperative, appropriate for age. General: Reports decreased appetite. Pain: Denies pain. Neuro: Level of Consciousness is awake, alert, obeys commands, Oriented to person, place, time, situation, Moves all extremities. Full function Gait is steady, Speech is normal. Cardiovascular: Patient's skin is warm and dry. Respiratory: Airway is patent Respiratory effort is even, unlabored, Respiratory pattern is regular, symmetrical. Derm: Skin is pink, warm \T\ dry. 10:23 Reassessment: Patient appears in no apparent distress at this time. No changes from sv previously documented assessment. Patient and/or family updated on plan of care and expected duration. Pain level reassessed. Patient is alert, oriented x 3, equal unlabored respirations, skin warm/dry/pink. 12:50 Reassessment: Patient appears in no apparent distress at this time. No changes from sv previously documented assessment. Patient and/or family updated on plan of care and expected duration. Pain level reassessed. Patient is alert, oriented x 3, equal unlabored respirations, skin warm/dry/pink. Vital Signs: 08:25 BP 135 / 96; Pulse 108; Resp 16; Temp 97.7(TE); Pulse Ox 99% on R/A; Height 6 ft. 1 in. ss (185.42 cm); Pain 0/10; 09:44 BP 135 / 95; Pulse 72; Resp 16; Pulse Ox 99% ; sv 10:22 BP 134 / 99; Pulse 78; Resp 16; Pulse Ox 98% ; sv 12:42 BP 137 / 89; Pulse 73; Resp 16; Pulse Ox 98% ; sv ED Course: 08:19 Patient arrived in ED. as 08:27 Triage completed. ss 08:27 Arm band placed on right wrist. ss 09:09 Tate Jay MD is Attending Physician. rn 09:26 Lacey Botello RN is Primary Nurse. sv 09:35 Patient has correct armband on for positive identification. Bed in low position. Call sv light in reach. Pulse ox on. NIBP on. Door closed. Warm blanket given. Head of bed elevated. 09:35 Inserted saline lock: 20 gauge in right antecubital area, using aseptic technique. sv Blood collected. Flushed right antecubital with 2 ml normal saline. 09:46 EKG done, by ED staff, reviewed by Tate Jay MD. sv 09:55 CT Chest, Abdomen, Pelvis - W/Contrast In Process Unspecified. EDMS 10:23 Awaiting lab results, Awaiting radiology results. sv 11:02 Awaiting: US. sv 11:25 US Abdomen Limited In Process Unspecified. EDMS 12:31 Herson Calle MD is Referral Physician. rn 12:50 No provider procedures requiring assistance completed. IV discontinued, intact, sv bleeding controlled, No redness/swelling at site. Pressure dressing applied. Administered Medications: 09:41 Drug: NS 0.9% 1000 ml Route: IV; Rate: 1000 ml; Site: right antecubital; sv 11:00 Follow up: Response: No adverse reaction; IV Status: Completed infusion; IV Intake: sv 1000ml 09:41 Drug: Zofran (Ondansetron) 4 mg Route: IVP; Site: right antecubital; sv 10:18 Follow up: Response: No adverse reaction sv 10:18 Drug: GI Cocktail without - (Maalox Suspension 30 ml, Lidocaine Liquid 2 % 15 sv ml) Route: PO; 10:54 Follow up: Response: No adverse reaction sv Intake: 11:00 IV: 1000ml; Total: 1000ml. sv Outcome: 12:32 Discharge ordered by MD. rn 12:50 Discharged to home ambulatory. sv 12:50 Condition: stable 12:50 Discharge instructions given to patient, Instructed on discharge instructions, follow up and referral plans. medication usage, Demonstrated understanding of instructions, follow-up care, medications, Prescriptions given X 1. 12:50 Patient left the ED. sv Signatures: Dispatcher [employer] Lacey Travis, RN Savannah Pope Roman, MD MD rn Smirch, Shelby, RN RN
--- NOTE | 2021-04-16 18:05 | EDPHYS ---
Physician Documentation [facility] Name: Raleigh Viera Age: 41 yrs Sex: Male : 1980 Arrival Date: 04/16/2021 Time: 08:19 Bed 3 Private MD: ED Physician Tate Jay HPI: 04/16 09:35 This 41 yrs old Male presents to ER via Ambulatory with complaints of rn Congestion, Decreased Appetite. 09:35 Patient reports approximately 4 months of decreased p.o. intake, states gets full after rn 2-3 bites, if eats too much throws up. Denies blood in vomit or stool. No fever. Positive for weight loss, but unknown amount. No known medical problems. Reports feels hungry just cannot eat that much. Is a smoker.. Onset: The symptoms/episode began/occurred 4 month(s) ago. Severity of symptoms: At their worst the symptoms were moderate in the emergency department the symptoms are unchanged. The patient has not experienced similar symptoms in the past. The patient has not recently seen a physician. Historical: - Allergies: 08:27 PENICILLINS; ss - Home Meds: 08:27 None [Active]; ss - PMHx: 08: None; ss - PSHx: 08:27 L ankle; ss - Immunization history:: Adult Immunizations unknown. - Social history:: Smoking status: Patient reports the use of cigarette tobacco products, smokes one-half pack cigarettes per day. - Family history:: not pertinent. - Hospitalizations: : No recent hospitalization is reported. ROS: 09:35 Constitutional: Negative for fever, chills Eyes: Negative for injury, pain, redness, rn and discharge, Neck: Negative for injury, pain, and swelling, Cardiovascular: Negative for chest pain, palpitations, and edema, Respiratory: Negative for shortness of breath, wheezing, and pleuritic chest pain, Abdomen/GI: Negative for constipation : Negative for injury, bleeding, discharge, and swelling, MS/Extremity: Negative for injury and deformity, Skin: Negative for injury, rash, and discoloration, Neuro: Negative for headache, weakness, numbness, tingling, and seizure. Exam: 09:35 Constitutional: Thin male no acute distress Head/Face: Normocephalic, atraumatic. rn Eyes: Pupils equal round and reactive to light, extra-ocular motions intact. Lids and lashes normal. Conjunctiva and sclera are non-icteric and not injected. Cornea within normal limits. Periorbital areas with no swelling, redness, or edema. ENT: Dry mucous membranes Cardiovascular: Tachycardic, regular rhythm. Respiratory: No increased work of breathing, no retractions or nasal flaring. Abdomen/GI: Soft, non-tender, no masses Skin: Warm, dry, no cyanosis MS/ Extremity: Pulses equal, no cyanosis. Neurovascular intact. Full, normal range of motion. Equal circumference. Neuro: Awake and alert, GCS 15, oriented to person, place, time, and situation. Cranial nerves II-XII grossly intact. Motor strength 5/5 in all extremities. Sensory grossly intact. Cerebellar exam normal. Normal gait. 10:21 ECG was reviewed by the Attending Physician. rn Vital Signs: 08:25 BP 135 / 96; Pulse 108; Resp 16; Temp 97.7(TE); Pulse Ox 99% on R/A; Height 6 ft. 1 in. ss (185.42 cm); Pain 0/10; 09:44 BP 135 / 95; Pulse 72; Resp 16; Pulse Ox 99% ; sv 10:22 BP 134 / 99; Pulse 78; Resp 16; Pulse Ox 98% ; sv 12:42 BP 137 / 89; Pulse 73; Resp 16; Pulse Ox 98% ; sv MDM: 09:09 Patient medically screened. rn 12:30 Differential Diagnosis GERD, gastritis, cancer, gastric outlet obstruction, enteritis. rn Data reviewed: vital signs, nurses notes, lab test result(s), radiologic studies, CT scan, and as a result, I will discharge patient. Data reviewed: radiologic studies, ultrasound. Counseling: I had a detailed discussion with the patient and/or guardian regarding: the historical points, exam findings, and any diagnostic results supporting the discharge/admit diagnosis, lab results, radiology results, the need for outpatient follow up, to return to the emergency department if symptoms worsen or persist or if there are any questions or concerns that arise at home. Counseling: I had a detailed discussion with the patient and/or guardian regarding: smoking cessation. Response to treatment: the patient's symptoms have mildly improved after treatment, and as a result, I will discharge patient. Special discussion: I discussed with the patient/guardian in detail that at this point there is no indication for admission to the hospital. It is understood, however, that if the symptoms persist or worsen the patient needs to return immediately for re-evaluation. Based on the history and exam findings, there is no indication for further emergent testing or inpatient evaluation. I discussed with the patient/guardian the need to see the relations mgr for further evaluation of the symptoms. ED course: .No acute findings on CT chest abdomen or pelvis ultrasound does not reveal gallstones or cholecystitis. Will DC home with GI follow-up as could be acid related or gastric outlet problem. Counseled at length regarding smoking cessation.. 04/16 09:20 Order name: Basic Metabolic Panel; Complete Time: 10:16 rn 04/16 09:20 Order name: CBC with Diff rn 04/16 09:20 Order name: Hepatic Function; Complete Time: 10:16 rn 04/16 09:20 Order name: Lipase; Complete Time: 10:16 rn 04/16 09:20 Order name: CT Chest, Abdomen, Pelvis - W/Contrast; Complete Time: 10:16 rn 04/16 09:54 Order name: CBC Smear Scan EDAL 04/16 09:20 Order name: IV Saline Lock; Complete Time: 09:41 rn 04/16 09:20 Order name: Labs collected and sent; Complete Time: 09:41 rn 04/16 09:20 Order name: EKG; Complete Time: 09:21 rn 04/16 09:20 Order name: EKG - Nurse/Tech; Complete Time: 09:46 rn 04/16 10:46 Order name: US Abdomen Limited; Complete Time: 11:41 rn EC:21 Rate is 71 beats/min. Rhythm is regular. QRS Creede is Normal. IL interval is normal. QRS rn interval is normal. QT interval is normal. No Q waves. T waves are Normal. No ST changes noted. Clinical impression: Normal ECG. Interpreted by me. Reviewed by me. Administered Medications: : Drug: NS 0.9% 1000 ml Route: IV; Rate: 1000 ml; Site: right antecubital; sv 11:00 Follow up: Response: No adverse reaction; IV Status: Completed infusion; IV Intake: sv 1000ml : Drug: Zofran (Ondansetron) 4 mg Route: IVP; Site: right antecubital; sv 10:18 Follow up: Response: No adverse reaction sv 10:18 Drug: GI Cocktail without - (Maalox Suspension 30 ml, Lidocaine Liquid 2 % 15 sv ml) Route: PO; 10:54 Follow up: Response: No adverse reaction sv Disposition Summary: 04/16/21 12:32 Discharge Ordered Location: Home rn Problem: an ongoing problem rn Symptoms: have improved rn Condition: Stable rn Diagnosis - Anorexia rn - Abdominal pain, unspecified rn Followup: rn - With: Herson Calle MD - When: As needed - Reason: Recheck today's complaints, Re-evaluation by your physician Discharge Instructions: - Discharge Summary Sheet rn - Abdominal Pain, Adult rn - Pain Without a Known Cause rn Forms: - Medication Reconciliation Form rn - Thank You Letter rn - Antibiotic technology intern - Prescription Opioid Use rn Prescriptions: - Protonix 40 mg Oral Tablet - take 1 tablet by ORAL route once daily; 30 tablet; Refills: 0, Product rn Selection Permitted Signatures: Dispatcher [employer] Lacey Travis RN RN Tate Garcia MD MD rn Smirch, Shelby, RN RN ss
[2021-04-17 21:14] VITALS: TEMP 97.7
[2021-04-17 21:18] VITALS: O2SAT 98
[2021-04-17 21:19] VITALS: BP 137/89
--- NOTE | 2021-04-18 07:35 | EKG ---
Test Date: 2021-04-16 Test Time: 09:45:32 Pricing Consultant: CORBY MEASUREMENT RESULTS: Intervals: Rate: 71 ND: 140 QRSD: 82 QT: 440 QTc: 478 [place]: P: 42 ND: 140 QRS: 49 T: 58 INTERPRETIVE STATEMENTS: Normal sinus rhythm Normal ECG Compared to ECG 10/17/2019 13:43:27 No significant changes Electronically Signed On 04-18-21 07:29:09 CDT by Kishan Castrejon
== END 2021-04-16 12:50 | disposition home or self-care (01) ==
LOC: ER 08:15
DX: R10.9 Unspecified abdominal pain (principal); R63.0 Anorexia; F17.210 Nicotine dependence, cigarettes, uncomplicated
CPT/HCPCS: 36415; 71260; 74177; 76705; 80048; 80076; 82565; 83690; 85025; 93005; J2405; J7030; Q9967